=== PATIENT | female | born 1975 | race Hispanic/Latino ===

== ENCOUNTER 2018-09-21 21:04 | Emergency (ER) | payer OTHER ==
[2018-09-22] MEDS ORDERED: CYCLOBENZAPRINE HCL 10 MG TABLET ONE (00:02)
[2018-09-22] MEDS ORDERED: ACETAMINOPHEN-CODEINE 300/30MG TAB ONE (00:03)
== END 2018-09-22 00:59 | disposition home or self-care (01) ==
LOC: EDH 21:04
DX: M54.2 Cervicalgia (principal); M54.5 Low back pain; V49.49XA Driver injured in collision with other motor vehicles in traffic accident, initial encounter; Y93.89 Activity, other specified; Y92.89 Other specified places as the place of occurrence of the external cause; Y99.8 Other external cause status
CPT/HCPCS: 72040; 81025